=== PATIENT | male | born 1995 | race African-American/Black ===

== ENCOUNTER 2018-08-30 19:18 | Emergency (ER) | payer SELFPAY ==
[~2018-08-30] VITALS: Ht 177.8 cm; Wt 83.9 kg
[2018-08-30 19:32] VITALS: BP 132/66
--- NOTE | 2018-08-30 19:34 | NUR ---
PT AMBULATORY TO ER LOBBY W/ STEADY GAIT IN STABLE CONDITION.
--- NOTE | 2018-08-30 20:54 | NUR ---
PT TAKEN TO CHAIR Chaitanya
--- NOTE | 2018-08-30 21:00 | NUR ---
PT C/O LEFT ANKLE PAIN X 1 DAY S/P INURY WHILE PLAYING BASKETBALL, -EDEMA, ERYTHEMA. NO DEFORMITY NOTED. CMS INTACT AND DP PULSES STRONG BILAT.
--- NOTE | 2018-08-30 21:13 | NUR ---
PA WITH PT
[2018-08-30 22:32] VITALS: BP 125/75
--- NOTE | 2018-08-30 22:32 | NUR ---
Note larissalan in EDM - 08/30/18 at 2242 by [email or web address] Patient discharged with v/s stable. Written and verbal after care instructions given and explained. Patient alert, oriented and verbalized understanding of instructions. Ambulatory with steady gait. All questions addressed prior to discharge. ID band removed. Patient advised to follow up with PMD. Rx of MOTRIN given. Patient educated on indication of medication including possible reaction and side effects. Opportunity to ask questions provided and answered.
--- NOTE | 2018-08-30 22:33 | NUR ---
LEFT ORTHOGLASS SHORT LEG SPLINT APPLIED TO PATIENT, GOOD PULSES BEFORE AND AFTER SPLINT.
== END 2018-08-30 22:32 | disposition home or self-care (01) ==
LOC: MED 19:18
DX: S93.402A Sprain of unspecified ligament of left ankle, initial encounter (principal); S93.602A Unspecified sprain of left foot, initial encounter; X50.1XXA Overexertion from prolonged static or awkward postures, initial encounter; Y93.67 Activity, basketball; Y92.39 Other specified sports and athletic area as the place of occurrence of the external cause; Y99.8 Other external cause status
CPT/HCPCS: 29515; 73610; 73630; 99283